=== PATIENT | male | born 1995 | race Two or more races ===

== ENCOUNTER 2024-09-08 09:32 | Emergency (ER) | payer OTHER, SELFPAY ==
[2024-09-08 09:33] VITALS: BP 148/100; PULSE 98; RESP 18; TEMP 36.7; O2SAT 97
[2024-09-08 10:52] LABS: Bacteria 0 SEEN /hpf (None Seen); Mucous, Urine 0 SEEN /hpf (<or=2+); Red Blood Cells-Urine 0 SEEN /hpf (0-5); Squamous Epithelial Cells - UA 0 SEEN /hpf (0-5); White Blood Cells 0 SEEN /hpf (0-5)
[2024-09-08 11:07] LABS: Color, Urine Yellow (Yellow); Glucose, Dipstick Normal (Normal); Ketone-Dipstick Negative (Negative); Leukocyte Esterase-Dipstick Negative /ul (Negative); Nitrite-Dipstick Negative (Negative); Occult Blood-Urine 25 /ul (Negative); Protein-Dipstick 30 mg/dl (Negative); Specific Gravity, Urine 1.015 (1.002-1.030); Urine Bilirubin Dipstick Negative (Negative); Urine Clarity Clear (Clear); Urine Urobilinogen 1 mg/dl (Normal)
[2024-09-08 11:56] VITALS: BP 108/76; PULSE 71; RESP 15; TEMP 36.4; O2SAT 98
[2024-09-08 11:58] VITALS: BMI 22.0
[2024-09-08 12:20] VITALS: BP 114/66; PULSE 59; RESP 14; TEMP 36.8; O2SAT 100
== END 2024-09-08 12:21 | disposition home or self-care (01) ==
PROVIDERS: Emergency Provider Surgery; Visit Provider Surgery
DX: N50.812 Left testicular pain (principal)
CPT/HCPCS: 76870; 81001; 93976; 99282